=== PATIENT | female | born 1935 | race Caucasian/White ===

== ENCOUNTER → 2018-09-10 15:40 | Outpatient (CLI) | payer MEDICARE, OTHER, SELFPAY ==
--- NOTE | 2018-09-10 | DI.ECHO.S_ITS ---
[facility] +---------+ : : [address] : : [address] : : : : [place], : : : : [place] [id number] : : : : Phone: [phone] + [id number] Echocardiogram Report + + :Name: PARISH LAWSON Study Date: 09/10/2018 Height: 62 in : :[facility] Exam Location: [facility] Weight: 238 lb : : Gender: Female BSA: 2.1 m2 : :: 1935 Age: 83 yrs BP: 135/80 mmHg: :Reason For Study: Ascendiing aorta enlargement : :Ordering Physician: Valeria Mckee : :Leo Performed By: Michelle Page : :Referring: VALERIA BAILEY : + + Interpretation Summary 1) Normal left ventricular size, wall motion, and systolic function (EF 60- 65%). 2) Grossly normal right ventricular size and function. 3) Diastolic parameters suggest a pseudonormalization pattern, consistent with probable elevated filling pressures. 4) No significant valvular abnormalities. 5) The ascending aorta is mildly enlarged at 4.1cm. 6) Compared to the Echo done 12/14/2015, no significant change. Procedure: A two-dimensional transthoracic echocardiogram with color flow and Doppler was performed. The study quality was technically difficult. Comparison is made with the echocardiogram of 12/14/2015. A contrast injection of Definity was performed to improve assessment of LV function. The patient was in normal sinus rhythm during the exam. Left Ventricle: Left ventricular wall thickness is at the upper limits of normal. The left ventricle is normal in size. The ejection fraction is estimated to be 60-65%. Left ventricular systolic function is normal without focal wall motion abnormalities. Diastolic parameters suggest a pseudonormalization pattern, consistent with probable elevated filling pressures. Right Ventricle: The right ventricle grossly appears normal in size with probable normal systolic function. Atria: The left atrium is severely dilated. The right atrium is mildly dilated. There is no Doppler evidence for an interatrial shunt. Mitral Valve: The mitral valve is normal in structure and function. There is mild mitral annular calcification. There is no mitral regurgitation noted. Aortic Valve: The aortic valve is grossly normal. The aortic valve opens well. There is no aortic valve stenosis. No aortic regurgitation is present. Tricuspid Valve: The tricuspid valve is not well visualized, but is grossly normal. There is a trace or physiologic amount of tricuspid regurgitation. Pulmonary artery pressures cannot be estimated because of the lack of a measurable TR jet velocity. Pulmonic Valve: The pulmonic valve is not well visualized. Great Vessels: The aortic root is normal size. The ascending aorta is mildly enlarged. This is unchanged compared to the previous study. The aortic arch is normal in size. The pulmonary is not well visualized. The IVC is of normal diameter and collapses less than 50% with a sniff. This suggests a right atrial pressure of 8 mm Hg. Pericardium/ Pleura There is no pericardial effusion. There is no pleural effusion. MMode/2D Measurements & Calculations LVIDd: 4.3 cm AoV Openin.9 cm LVIDs: 2.3 cm Ao root diam: 3.2 cm IVSd: 0.95 cm asc Aorta Diam: 4.1 cm LVPWd: 0.86 cm Ao Arch Diam (Prox Trans): 3.0 cm LV carroll. diameter/BSA (cm/m^2): 2.1 LV sys. diameter/BSA (cm/m^2): 1.1 FS: 46.6 % EPSS: 0.11 cm LA A2 area: 27.4 cm2 RA long axis: 6.1 cm LA A4 area: 26.8 cm2 RA area: 22.2 cm2 LA length (vol): 6.1 cm RA vol: 68.9 ml LA vol: 102.2 ml RA : 33.5 ml/m2 LA vol index: 49.6 ml/m2 RVD1 (basal): 4.2 cm IVC diam: 1.7 cm Doppler Measurements & Calculations Ao V2 max: 146.5 cm/sec LVOT Max Rakesh: 101.9 cm/sec Ao V2 mean: 101.8 cm/sec LV V1 max P.2 mmHg Ao V2 VTI: 32.2 cm LV V1 VTI: 25.2 cm Ao max P.6 mmHg Ao mean P.5 mmHg sev ratio: 0.78 MV E max rakesh: 72.6 cm/sec MV A max rakesh: 114.8 cm/sec MV E/A: 0.63 Med Peak E' Rakesh: 4.4 cm/sec E/E' med: 16.4 Lat Peak E' Rakesh: 5.1 cm/sec E/E' lat: 14.4 E/e' average: 15.4 MV dec time: 0.25 sec PA V2 max: 74.7 cm/sec MV P1/2t: 70.6 msec PA V2 mean: 47.5 cm/sec MVA(P1/2t): 3.1 cm2 PA mean P.99 mmHg PA Accel Time: 0.04 sec Reading Physician:09:59 AM
== END ==
PROVIDERS: PCP Internal Medicine; Visit Provider Internal Medicine Cardiovascular Disease
DX: I77.89 Other specified disorders of arteries and arterioles (principal)
CPT/HCPCS: 93306; Q9957

== ENCOUNTER → 2019-12-09 17:40 | Outpatient (CLI) | payer MEDICARE, OTHER, SELFPAY ==
--- NOTE | 2019-12-09 | DI.MRI.S_ITS ---
PROCEDURE: MR LUMBAR SPINE WO CON INDICATIONS: Right sided low back pain and hip pain TECHNIQUE: Noncontrast sagittal T1 spin echo and T2 fast echo, sagittal STIR, axial T1 and T2 fast spin echo through the lumbar spine. In cases with scoliosis, additional coronal T2 fast spin echo may be performed. COMPARISON: None. FINDINGS: Image quality: Excellent. Alignment and Curvature: There is left lateral subluxation of the L3 and L4 vertebral bodies. There is approximately 27? of convex left lumbar spine scoliosis. Bone Marrow: There is transitional anatomy with left dwayne lumbarization of the S1 vertebral body. Reactive endplate changes noted adjacent the L2-L3, L3-L4, L4-L5 and L5-S1 discs. Benign intraosseous hemangioma noted in the L2 vertebral body. No acute vertebral body compression fractures. Spinal Cord: Conus medullaris terminates at the L2 level. Visualized cord demonstrates normal signal and size. Paraspinous Soft Tissues: No paravertebral masses. L1-L2: Loss of disc signal and slight loss of disc height. Mild to moderate diffuse disc bulge. Moderate right and mild left facet hypertrophy. Mild to moderate narrowing of the central canal. Moderate bilateral neural foraminal narrowing. No neural compression. L2-L3: Near complete loss of disc substance with partial ankylosis. Small right central posterior endplate osteophyte. Mild bilateral facet hypertrophy. No central stenosis. Moderate right and mild left neural foraminal narrowing. No neural compression. L3-L4: Loss of disc signal and height. Moderate, diffuse disc bulge. Moderate bilateral facet hypertrophy. Moderate narrowing of the central canal. Severe right and moderate left neural foraminal narrowing with compression of the exiting right L3 nerve root. L4-L5: Loss of disc signal and height. Posterior endplate osteophytosis. Moderate bilateral facet hypertrophy. Moderate narrowing of the central canal. Mild right and moderate to severe left neural foraminal narrowing with slight compression of the exiting left L4 nerve root. L5-S1: Loss of disc signal. Moderate bilateral facet hypertrophy. No central stenosis. Severe left neural foraminal narrowing with compression of the exiting left L5 nerve root. Right neural foramen is fully patent. IMPRESSION: 1. Convex left scoliosis. 2. Multilevel degenerative disease. 3. Multilevel facet arthropathy. 4. Moderate L3-L4 and L4-L5 central canal narrowing. Mild to moderate L1-L2 central canal narrowing. 5. Severe right L3-L4 neural foraminal narrowing with compression of the exiting right L3 nerve root. Moderate to severe left L4-L5 neural foraminal narrowing with slight compression of the exiting left L4 nerve root. Severe left L5-S1 neural foraminal narrowing with compression of the exiting left L5 nerve root. Dictated by: Jo Ann Harmon MD, PhD on 12/10/2019 at 9:57 Approved by: Jo Ann Harmon MD, PhD on 12/10/2019 at 10:12
== END ==
PROVIDERS: PCP Family Medicine; Referring Provider Family Medicine; Visit Provider Orthopaedic Surgery
DX: M54.5 Low back pain (principal); M25.551 Pain in right hip; M51.36 Other intervertebral disc degeneration, lumbar region; M47.816 Spondylosis without myelopathy or radiculopathy, lumbar region; M47.817 Spondylosis without myelopathy or radiculopathy, lumbosacral region; M48.061 Spinal stenosis, lumbar region without neurogenic claudication; M48.07 Spinal stenosis, lumbosacral region; M41.86 Other forms of scoliosis, lumbar region
CPT/HCPCS: 72148